=== PATIENT | female | born 1985 | race American Indian/Alaskan Native ===

== ENCOUNTER 2018-05-13 18:50 | Emergency (ER) | payer MEDICAID ==
[2018-05-13 18:53] VITALS: BP 129/80; PULSE 104; RESP 18; TEMP 98.2; O2SAT 97; BMI 24.9
--- NOTE | 2018-05-13 19:38 | C.PDOC ---
History Of Present Illness 32 year old female presents to the emergency department with complaints of an itchy, bumpy rash to her hands bilaterally, and in her neck and groin area over the past several days. Patient also reports that she has been having vaginal itching and requesting medication for yeast infection. She denies fever, pain, swelling, abdominal pain, back pain, vomiting, diarrhea, and recent travel. Time Seen by Provider: 05/13/18 19:04 Chief Complaint (Nursing): Abnormal Skin Integrity History Per: Patient History/Exam Limitations: no limitations Onset/Duration Of Symptoms: Days Current Symptoms Are (Timing): Still Present Location Of Injury: Right: Hand, Left: Hand, Anterior: Neck Quality Of Symptoms: Itching Pain Scale Rating Of: 1 Recent travel outside of the [place]: No Past Medical History Reviewed: Historical Data, Nursing Documentation, Vital Signs Vital Signs: Last Vital Signs Temp 98.2 F 05/13/18 18:53 Pulse 104 H 05/13/18 18:53 Resp 18 05/13/18 18:53 BP 129/80 05/13/18 18:53 Pulse Ox 97 05/13/18 21:59 - Medical History PMH: No Chronic Diseases Denies: Arthritis, Chronic Kidney Disease Surgical History: No Surg Hx - [facility] Procedures OTHER SKIN & SUBQ I D (05/17/15) Family History: States: No Known Family Hx - Social History Hx Alcohol Use: Yes Hx Substance Use: No - Immunization History Hx Tetanus Toxoid Vaccination: Yes Hx Influenza Vaccination: No Hx Pneumococcal Vaccination: Yes Review Of Systems Constitutional: Negative for: Fever Cardiovascular: Negative for: Chest Pain, Edema Respiratory: Negative for: Cough Gastrointestinal: Negative for: Abdominal Pain Genitourinary: Negative for: Dysuria Musculoskeletal: Negative for: Neck Pain Skin: Positive for: Rash (itchy, bumpy). Negative for: Other (swelling) Neurological: Negative for: Weakness, Numbness Physical Exam - Physical Exam Appears: Non-toxic, No Acute Distress Skin: Warm, Dry, Rash (vesicular skin colored papillar rash to the bilateral hands, in between the web-space of the fingers, neck, and bilateral inguinal folds. ) Head: Atraumatic, Normacephalic Eye(s): bilateral: Normal Inspection Nose: Normal Oral Mucosa: Moist Throat: Normal, No Erythema, No Exudate Neck: Normal, Supple Chest: Symmetrical Cardiovascular: Rhythm Regular, No Murmur Respiratory: Normal Breath Sounds, No Rales, No Rhonchi, No Wheezing Gastrointestinal/Abdominal: Normal Exam, Soft, No Tenderness, No Guarding, No Rebound Extremity: Normal ROM Neurological/Psych: Oriented x3, Normal Speech, Normal Cognition, Normal Motor, Normal Sensation Gait: Steady ED Course And Treatment O2 Sat by Pulse Oximetry: 97 (RA) Pulse Ox Interpretation: Normal Progress Note: Plan: Diflucan 200mg PO Disposition - Disposition Referrals: Trinidad Núñez MD [Staff Provider] - Disposition: HOME/ ROUTINE Disposition Time: 19:37 Condition: GOOD Additional Instructions: Follow up with the medical doctor within 1-2 days, Return if worsened. Prescriptions: Clotrimazole/Betamethasone [Lotrisone] 15 gm EXT BID #2 tube Instructions: Yeast Infection (DC), Heat Rash (Prickly Heat) Forms: [facility] (Lithuanian) - Clinical Impression Clinical Impression: Dyshidrotic eczema, Yeast infection - PA / [employer]NAGER / Resident Statement MD/DO has reviewed & agrees with the documentation as recorded. - Scribe Statement The provider has reviewed the documentation as recorded by the Scribe (Miguel Hampton) All medical record entries made by the Scribe were at my direction and personally dictated by me. I have reviewed the chart and agree that the record accurately reflects my personal performance of the history, physical exam, medical decision making, and the department course for this patient. I have also personally directed, reviewed, and agree with the discharge instructions and disposition.
== END 2018-05-13 19:50 | disposition home or self-care (01) ==
LOC: C.ER 18:50
DX: L30.1 Dyshidrosis [pompholyx] (principal); B37.9 Candidiasis, unspecified